=== PATIENT | male | born 1985 | race Caucasian/White ===

== ENCOUNTER 2021-07-02 07:56 | Observation (INO) | payer OTHER ==
[~2021-07-02] VITALS: Ht 165.1 cm; Wt 95.3 kg
[~2021-07-02 07:56] MED LIST: AMBIEN 10 MG TA10 MG PO; CONCERTA36 M1 PO; DULOXETINE HCL30 MG PO; FLONASE 0.05%50 MCG NASAL; KEPPRA750 MG PO; LEXAPRO 10 MG T10 M2 PO; METHYLPHENIDATE54 MG PO; NEURONTIN 300M300 M2 PO; NORCO 10-325 T1 EACH PO
[2021-07-02 09:56] VITALS: BP 144/83
--- NOTE | 2021-07-02 12:27 | O ---
[facility] [place] [address] OPERATIVE REPORT Name: CHAZ CONN Room #: 150-1 [employer] M.R.#: [id number] Admission: 07/02/21 Attend Phys: Jeremy Bonilla MD Discharge: Date of : 85 Report #: [id number] THIS REPORT FOR: cc: Jose Alejandro Shrestha MD, Martin J. MD Clymer, David J. MD ~ DATE OF SERVICE: 07/02/2021 PREOPERATIVE DIAGNOSIS: Recurrent lumbar disk herniation, L5-S1, left, with radiculopathy. POSTOPERATIVE DIAGNOSIS: Recurrent lumbar disk herniation, L5-S1, left, with radiculopathy. PROCEDURE: Revision decompressive laminectomy, diskectomy, and foraminotomy L5-S1, left. SURGEON: Jeremy Bonilla MD INDICATIONS: This 35-year-old gentleman underwent lumbar laminectomy and diskectomy a number of months ago at the L5-S1 level. Initially, he did quite well, but recently he has had some recurrence of radiating left leg pain. New MRI study suggests some recurrence of disk herniation, as well as foraminal stenosis related to bony spurring. Given these findings, we have elected to return for a revision more aggressive decompression. We have discussed preoperatively that he may have some ongoing symptoms as a result of scarring and may in the future have further disk problems and may even require stabilization if further degenerative changes should occur. He understands and prefers to go ahead with a revision decompressive laminectomy and diskectomy at this time. DESCRIPTION OF PROCEDURE: The patient was taken to the operating room where he was placed under general anesthesia. Prophylactic intravenous antibiotics were administered. He was turned to the prone position. The low back was meticulously prepped and draped. A skin incision was made through the old surgical scar overlying the L5-S1 interspace, extending slightly toward the left midline. The incision was extended slightly longer to allow better visualization, as he is somewhat heavy, with a good deal of adipose tissue. The fascia was incised and the paraspinal muscles were retracted out toward the left side, exposing the lamina. The old laminectomy defect at L5 and S1 was identified and there was a good deal of scarring, making dissection difficult. The scar was elevated and somewhat more aggressive laminectomy in the inferior aspect of L5 and the superior aspect of S1 was created. An intraoperative x-ray was obtained with a probe in place, confirming that I was at the appropriate L5-S1 level. The dissection was then extended more aggressively laterally, undercutting the facet and extending to a somewhat more aggressive foraminotomy. [address] [address] OPERATIVE REPORT Name: CHAZ CONN Room #: 150-1 [employer] M.R.#: [id number] Admission: 07/02/21 Attend Phys: Jeremy Bonilla MD Discharge: Date of : 85 Report #: [id number] The nerve root was significantly involved in scar tissue and gentle traction and debridement was performed until the nerve root was freed up. The disk was found to be bulging, but there was no extruded disk fragment. The disk was easily entered and a moderate amount of additional degenerative disk debris was removed. This was extended out laterally where the disk seemed to be more prominent and this area was decompressed nicely. An intraoperative x-ray was obtained with the probe in the disk space, confirming that I was at the appropriate L5-S1 level. The dissection was continued until there were no further loose degenerative disk debris. The nerve root was thoroughly inspected. It was somewhat erythematous and slightly swollen, consistent with some chronic compression. It was traced nicely all the way out through the neural foramina and seemed to be freed up well. There was no apparent further compression or deformity of the nerve root. The neural foramina seemed to be widely open. The lateral gutter was opened. The disk was gently palpated across the midline and no further significant disk bulging was identified. The canal was inspected both proximally and distally. No other abnormalities were identified. At this point, the wound was copiously irrigated. Good hemostasis was established with the use of thrombin and gentle sponge pressure for several minutes. Once the wound was clearly dry, 40 mg of Depo-Medrol were left in the epidural space and the laminotomy defect was covered with a small sheet of Gelfoam soaked in thrombin. The muscle layer and fascia were closed with multiple #1 Vicryl sutures. The abundant adipose tissues were also closed with #1 Vicryl. The more superficial tissues were closed with 2-0 Monocryl. The skin was closed with skin dewey. A sterile dressing was applied. The patient was awakened and returned to recovery room in good condition. <ELECTRONICALLY SIGNED> By: Jeremy Bonilla MD 07/02/21 1227 [id number] Jeremy Bonilla MD /nt
--- NOTE | 2021-07-02 14:45 | NUR ---
HENRIETTA REYES A/O X 4, 2 L 02 VIA NASAL CANNULA, [place] BILATERAL HERAING AIDS, GLASSES, RIGHT HAND IV-DRESSING DRY, CLEAN, INTACT. CLEAR LLIQUID DIET, GAUZE ON BACK, BACK PAIN 8/10 MORPHINE GIVEN. AT BEDSIDE.
[2021-07-02 16:06] VITALS: BP 112/74
[2021-07-02 20:10] VITALS: BP 120/79
--- NOTE | 2021-07-03 04:14 | NUR ---
PT IS A/O X4 AND IS UP WITH ASSISTANCE. WEANED PT OFF OXYGEN. CURRENTLY ON ROOM AIR. VSS. AFEBRILE. ADVANCED DIET TO REGULAR AND TOLERATING WELL. VOIDS PER URINAL. NO BM THIS SHIFT BUT DOES REPORT PASSING FLATTUS SINCE PROCEDURE. DRSG TO BACK IS C/D/I TO LOWER BACK. PT DOES C/O PAIN. PRN PAIN MEDICATION GIVEN DIRECTED. MAINTANCE FLUID INFUSING AT PRESCRIBED RATE. PT IS PROGRESSING TOWARD PLAN OF CARE DC GOALS. CALLS OUT APPROPRIATELY. CALL LIGHT IS WITHIN REACH.
[2021-07-03 07:41] VITALS: BP 120/79
[2021-07-03 08:10] VITALS: BP 145/89
--- NOTE | 2021-07-03 09:14 | NUR ---
Assumed care of pt at 0700. Pt a&ox4. Pain controlled. Pt ambulating SBA. Voiding well. Tolerating diet. Dressing c/d/i. Family at bedside. Pt will discharge to home.
== END 2021-07-03 09:39 | disposition home or self-care (01) ==
LOC: OR 07:56 → TBA 10:37 → EDSTATUS 11:01 → OR 13:27 → 4S 13:39 → OR 13:40 → PRE 15:41 → 4S 07-03 09:39
PROVIDERS: ADMIT Orthopaedic Surgery; ATTEND Orthopaedic Surgery
DX: M51.17 Intervertebral disc disorders with radiculopathy, lumbosacral region (principal); Z20.822 Contact with and (suspected) exposure to COVID-19; F90.9 Attention-deficit hyperactivity disorder, unspecified type; G40.909 Epilepsy, unspecified, not intractable, without status epilepticus; Z79.899 Other long term (current) drug therapy
CPT/HCPCS: 10102; 50010; 50101; 50402; 50704; 50850; 51412; 56525; 62110; 62900; 70005